=== PATIENT | male | born 1995 | race Caucasian/White ===

== ENCOUNTER 2019-07-27 02:00 | Emergency (ER) | payer SELFPAY ==
[~2019-07-27] VITALS: Ht 172.7 cm; Wt 86.6 kg
[2019-07-27 02:08] VITALS: BP 121/77
[2019-07-27 02:10] VITALS: BP 121/77
[2019-07-27] MEDS ORDERED: predniSONE 20 MG TAB PO ONE (02:10)
--- NOTE | 2019-07-27 02:11 | NUR ---
PT AMBULATED TO BED #2
--- NOTE | 2019-07-27 02:11 | NUR ---
24 Y/O F PRESENTED TO ED WITH C/O RASH. RASH NOTED TO BILATERAL ANTECUBITAL. ERYTHEMA NOTED. 5/10 PAIN, ITCHING AND NON-RADIATING. PT CONSUMED PIZZA AND HAMBURGER AT 2100 AND NOTICED A RASH AT 2300. O2 SATURATION AT 98% RA. BILATERAL LUNG KILGORE CLEAR. WILL CONTINUE TO MONITOR.
--- NOTE | 2019-07-27 02:26 | NUR ---
Patient discharged with v/s stable. Written and verbal after care instructions given and explained. Patient alert, oriented and verbalized understanding of instructions. Ambulatory with steady gait. All questions addressed prior to discharge. ID band removed. Patient advised to follow up with PMD. Rx of benadryl, prednisone, pepcid given. Patient educated on indication of medication including possible reaction and side effects. Opportunity to ask questions provided and answered.
== END 2019-07-27 02:26 | disposition home or self-care (01) ==
LOC: MED 02:00
DX: L50.0 Allergic urticaria (principal); Z90.49 Acquired absence of other specified parts of digestive tract
CPT/HCPCS: 99283; J7512; Q0163